=== PATIENT | male | born 1970 | race Two or more races ===

== ENCOUNTER 2020-09-14 02:42 | Inpatient (IN) | payer OTHER ==
[~2020-09-14] VITALS: Ht 162.6 cm; Wt 65.8 kg
[2020-09-14] MEDS ORDERED: ONDANSETRON HCL INJ 2MG/ML 2ML 2 MG/ML VIAL IV STA (03:08)
[2020-09-14] MEDS ORDERED: SODIUM CHLORIDE 0.9% 1000ML 1,000 ML IV STA (03:08)
[2020-09-14] MEDS ORDERED: FAMOTIDINE 20 MG/2 ML VIAL IV ONE (03:15)
[2020-09-14] MEDS ORDERED: ASPIRIN 325 MG TAB PO ONE (03:30)
[2020-09-14] MEDS: METOPROLOL TARTRATE 25 MG TAB PO SCH ×2 (03:30→18:00)
[2020-09-14] MEDS ORDERED: SODIUM CHLORIDE FLUSH 10 ML SYR INJ PRN (03:30)
[2020-09-14] MEDS ORDERED: DEXTROSE 50% SYRINGE 50 ML IV PRN (03:30)
--- NOTE | 2020-09-14 03:41 | NUR ---
[facility] notified of need for transfer to [facility] room 106
--- NOTE | 2020-09-14 03:48 | Emergency Department Note ---
History of Present Illnes History of Present Illness Chief Complaint: Abdominal Complaints History of Present Illness This is a 50 year old [place] Islander Rastafarian male Hx diabetes c/o nausea vomiting unable to eat for 1 day, no chest pain no SOB. He had SC 1 wk ago, went to [facility], had 2 stents, staying there for 5 days. Historian: Patient, Medical Record Arrival Mode: Car History limited by: language barrier Manager Administrative Services Required: Yes Onset (how long ago): day(s) (1 day) Radiation: Reports abdomen Severity: moderate Onset quality: gradual Duration (how long): day(s) Timing of current episode: constant Progression: worsening Context: Reports recent illness Relieving factors: none Exacerbating factors: none Associated symptoms: Reports malaise, Reports nausea/vomiting Treatments prior to arrival: none Past Medical/Family History Physician Review I have reviewed the patient's past medical and family history. Any updates have been documented here. Past Medical History Recent Fever: No Clinical Suspicion of Infectio: No New/Unexplained Change in Ment: No Past Medical History: Hypertension, Diabetes, SC, CAD Past Surgical History: PCI Social History Smoking Cessation: Unknown if ever smoked Alcohol Use: None Any Illegal Drug Use: No TB Exposure/Symptoms: No Physically hurt or threatened: No Family History Family history of heart diseas: No Other Any Pre-Existing Lines (PICC,: No Is patient up to date on immun: No Review of Systems Review of Systems Constitutional: Reports weakness EENTM: Reports no symptoms Cardiovascular: Reports no symptoms Respiratory: Reports no symptoms Gastrointestinal: Reports as per HPI, Reports nausea Genitourinary: Reports no symptoms Musculoskeletal: Reports other (cramp) Integumentary: Reports no symptoms Neurological: Reports no symptoms Psychological: Reports no symptoms Endocrine: Reports no symptoms Hematological/Lymphatic: Reports no symptoms Physical Exam Related Data Allergies: Coded Allergies: No Known Allergies (Unverified , 09/14/20) Vital signs reviewed: Yes Physical Exam CONSTITUTIONAL Constitutional: Present well-developed, Present well-nourished HENT HENT: Present normocephalic, Present atraumatic, Present oropharynx clear/moist, Present nose normal HENT L/R: Present left ext ear normal, Present right ext ear normal EYES Eyes: Reports PERRL, Reports conjunctivae normal NECK Neck: Present ROM normal PULMONARY Pulmonary: Present effort normal, Present breath sounds normal CARDIOVASCULAR Cardiovascular: Present regular rhythm, Present heart sounds normal, Present capillary refill normal, Present normal rate GASTROINTESTINAL Abdominal: Present soft, Present nontender, Present bowel sounds normal GENITOURINARY SKIN Skin: Present warm, Present dry MUSCULOSKELETAL Musculoskeletal: Present ROM normal NEUROLOGICAL Neurological: Present alert, Present oriented x 3, Present no gross motor or sensory deficits PSYCHOLOGICAL Psychological: Present mood/affect normal, Present judgement normal Results Laboratory Lab results reviewed: Yes Laboratory comments trop I 10, CKMB 4.5, repeat trop 1 hours later 7.09 Imaging Imaging results reviewed: Yes Impressions abdominal series: no acute Procedures 12 Lead ECG Interpretation ECG Interpretation : ECG: ECG 1 Manager Administrative Services: Interpreted by ED physician Date: Sep 14, 2020 Time: 03:00 Prior ECG tracings: reviewed Rhythm: sinus rhythm Rate: normal BPM: 103 QRS axis: normal ST segment elevation: V1, V2 Q waves: aVR, V1, V2 Clinical Impression: abnormal ECG Additional Comments evolving anterior SC. repeat EKG 1 hours later, no change Assessment & Plan Medical Decision Making MDM N/V due gastritis due to NSAID, angina equivalence, central pain Reassessment Reassessment time: 04:08 Reassessment improving, taking aspirin OK Assessment & Plan Final Impression: (1) Dehydration (2) Nausea & vomiting (3) Gastritis (4) Hyperglycemia due to diabetes mellitus (5) CAD (coronary artery disease), [place] coronary artery Depart Disposition: ADMITTED Home Meds Reported Medications Ticagrelor (BRILINTA) 90 Mg Tablet, BID 09/14/20 Sulfamethoxazole/Trimethoprim (BACTRIM DS TABLET) 1 Each Tablet, 1 TAB PO BID, #60 TAB 09/14/20 Spironolactone (SPIRONOLACTONE) 25 Mg Tablet, 12.5 MG PO DAILY, #60 TAB 09/14/20 Metoprolol Succinate (TOPROL XL) 25 Mg Tab.er.24h, 12.5 MG PO HS, TAB 09/14/20 Magnesium Oxide (MAGNESIUM OXIDE) 400 Mg Tablet, 400 MG PO BID, TAB 09/14/20 Atorvastatin Calcium (ATORVASTATIN CALCIUM) 20 Mg Tablet, 40 MG PO HS, #30 TAB 09/14/20 Aspirin (ASPIRIN) 81 Mg Tab.chew, DAILY 09/14/20 Metformin Hcl (METFORMIN HCL) 500 Mg Tablet, 500 MG PO BID, #60 TAB 09/14/20 Medications in the ED Famotidine 20 mg ONCE ONCE IV Last administered on 09/14/20at 03:32; Admin Dose 20 MG; Start 09/14/20 at 03:15; Stop 09/14/20 at 03:34; Status DC Ondansetron HCl 8 mg NOW STAT IV Last administered on 09/14/20at 03:30; Admin Dose 8 MG; Start 09/14/20 at 03:08; Stop 09/14/20 at 03:34; Status DC Sodium Chloride 1,000 ml @ 0 mls/hr Q0M STAT IV Last administered on 09/14/20at 03:32; Admin Dose 999 MLS/HR; Start 09/14/20 at 03:08; Stop 09/14/20 at 03:17; Status DC Aspirin 81 mg QAM PO ; Start 09/14/20 at 09:00; Stop 10/14/20 at 08:59; Status UNV Metoprolol Tartrate 25 mg Q12H PO ; Start 09/14/20 at 03:30; Stop 10/14/20 at 03:29; Status UNV Simvastatin 40 mg HS PO ; Start 09/14/20 at 21:00; Stop 10/14/20 at 20:59; Status UNV Nitroglycerin 1 gm Q6H TOP ; Start 09/14/20 at 06:00; Stop 10/14/20 at 05:59; Status UNV Famotidine 20 mg Q12H IV ; Start 09/14/20 at 03:30; Stop 10/14/20 at 03:29; Status UNV Sodium Chloride 1,000 ml @ 125 mls/hr Q8H IV ; Start 09/14/20 at 03:30; Stop 10/14/20 at 03:29 Sodium Chloride 10 ml PRN PRN INJ IV SITE FLUSH; Start 09/14/20 at 03:30; Stop 10/14/20 at 03:29 Insulin Human Regular ACHS SQ ; Start 09/14/20 at 07:30; Stop 10/14/20 at 07:29 Dextrose 50 ml PRN PRN IV BLOOD SUGAR; Start 09/14/20 at 03:30; Stop 10/14/20 at 03:29 Ondansetron HCl 4 mg Q6H IV ; Start 09/14/20 at 06:00; Stop 10/14/20 at 05:59; Status UNV Aspirin 325 mg ONCE ONCE PO ; Start 09/14/20 at 03:30; Stop 09/14/20 at 03:37; Status DC Physician Attestation Provider Attestation case discussed with Dr Parth Chaney, JOSIE Barakat MD Sep 14, 2020 03:48
[2020-09-14] MEDS ORDERED: PROMETHAZINE 25MG/ NS 50ML (IV) IV PRN (04:00)
[2020-09-14] MEDS: ASPIRIN 81 MG CHEW TAB PO SCH (04:15)
--- NOTE | 2020-09-14 04:15 | NUR ---
repeat EKG and TROP done per MD request.
--- NOTE | 2020-09-14 04:46 | NUR ---
pt had covid test done here yesterday results still pending
--- NOTE | 2020-09-14 04:55 | Diagnostic Imaging Report ---
EXAM: Abdomen 3 radiographs INDICATION: ^abdominal pain n/v ^[id number] ^[id number] COMPARISON: None FINDINGS: Nonobstructive bowel gas pattern. No signs of pneumoperitoneum. Moderate rectal stool burden. Mild right lung base opacity. No acute osseous abnormality. IMPRESSION: 1. Nonobstructive bowel gas pattern. 2. Mild right lung base opacity, representing subsegmental atelectasis or trace pleural effusion. Signed by: Dr. Colt Lee MD on 09/14/2020 4:52 AM
--- NOTE | 2020-09-14 05:00 | NUR ---
PATIENT ARRIVED VIA STRETCHER FROM [facility]. RECEIVED REPORT FROM SEAN KEARNS NURSE. CALL LIGHT WITHIN REACH. PATIENT SPEAKS A LITTLE BIT OF CONGOLESE. 2 GUARDS AT BEDSIDE. PATIENT AMBULATES.
[2020-09-14] MEDS: SODIUM CHLORIDE 0.9% 1000ML 1,000 ML IV SCH ×3 (05:18→22:15)
[2020-09-14 05:25] VITALS: BP 88/70
[2020-09-14] MEDS ORDERED: TICAGRELOR 90 MG TABLET PO SCH ×2 (06:00→10:15)
[2020-09-14] MEDS ORDERED: NITROGLYCERIN 2% OINT 1 GM PKT TOP SCH (06:00)
[2020-09-14] MEDS ORDERED: ATORVASTATIN CA20 MG PO (06:09)
[2020-09-14] MEDS ORDERED: MAGNESIUM OXID400 MG PO (06:09)
[2020-09-14] MEDS ORDERED: BRILINTA90 MG (06:09)
[2020-09-14] MEDS ORDERED: TOPROL XL25 MG PO (06:09)
[2020-09-14] MEDS ORDERED: ASPIRIN81 MG (06:09)
[2020-09-14] MEDS ORDERED: SPIRONOLACTONE25 MG PO (06:09)
[2020-09-14] MEDS ORDERED: METFORMIN HCL500 MG PO (06:09)
[2020-09-14] MEDS ORDERED: BACTRIM DS TAB1 EACH PO (06:09)
--- NOTE | 2020-09-14 06:26 | NUR ---
H&P cc: nausea/vomiting HPI: 50yoM, a account relationship manager, with recent left chest pain, taken to [facility], found to have FL, underwent LHC with 2 stents 1 week ago, now with intractable N/V upon eating. Tn 10. Repeat now is 7. PMH: FL s/p 2 stents at [facility] 1 week ago in 09/2020, HTN, HLD, DM2 PSHx: coronary stent ALlergies; see emr FH/SH: from [place]; some etoh; no cigs; . Meds; see MAR ROS: no f/c/s/CHERY/cp/sob/dizziness/leg pain/back pain/vision changes/confusion/focal limb weakness v/s revd PE nad anicteric ns1s2 mod bs soft nt nd no e/t skin dry n. affect a&ox3; power labs/meds revd A/P: NSTEMI- medical tx; echo; cardio consult. CAD- recent stent; cont BB/ASA/brilanta DM2 - check hab1c/lipids HLD- statin Prop; scd; ppi dispo: f/u labs; f/u cardio CARYL EVANS MD, PHD.
[2020-09-14] MEDS ORDERED: ENOXAPARIN INJ 80 MG/0.8 ML SYR SC SCH (07:15)
--- NOTE | 2020-09-14 07:26 | NUR ---
GAVE BEDSIDE SHIFT REPORT TO ONCOMING NURSE. CALL LIGHT WITHIN REACH. PATIENT IN BED. HOURLY ROUNDING PERFORMED.
[2020-09-14 07:55] LABS: BASOPHILS % 0.5 % (0.0-1.0); EOSINOPHILS # (AUTO) 0.1 (0.0-0.4); EOSINOPHILS % 0.8 % (0.0-6.0); HEMATOCRIT 34.2 % (38.2-49.6); HEMOGLOBIN 11.1 g/dL (14.0-18.0); LYMPHOCYTES # (AUTO) 1.1 (1.0-3.2); MEAN CORPUSCULAR HEMOGLOBIN 26.9 pg (28-32); MEAN CORPUSCULAR HGB CONC 32.5 g/dL (31-35); MEAN CORPUSCULAR VOLUME 82.8 fL (81-99); MONOCYTES # (AUTO) 0.8 (0.2-0.8); MONOCYTES % 9.2 % (4.4-11.3); NEUTROPHILS # (AUTO) 6.4 (2.1-6.9); NEUTROPHILS % 75.9 % (38.7-80.0); PLATELET COUNT 360 x10e3/uL (140-360); RED BLOOD COUNT 4.13 x10e6/uL (4.3-5.7); RED CELL DISTRIBUTION WIDTH 12.4 % (11.7-14.4)
[2020-09-14 08:19] LABS: ANION GAP 12.4 mmol/L (8-16); BLOOD UREA NITROGEN 14 mg/dL (7-26); BUN/CREATININE RATIO 15 (6-25); CALCIUM 8.8 mg/dL (8.4-10.2); CARBON DIOXIDE 25 mmol/L (22-29); CHLORIDE 100 mmol/L (98-107); CREATININE, SERUM 0.93 mg/dL (0.72-1.25); EST GLOMERULAR FILTRATION RATE > 60 ML/MIN (60-); GLUCOSE 266 mg/dL (74-118); POTASSIUM 5.4 mmol/L (3.5-5.1); SODIUM 132 mmol/L (136-145)
[2020-09-14] MEDS: INSULIN REGULAR, HUMAN 100 UNIT/1 ML 3ML VIAL SQ SCH ×4 (08:30→21:00)
--- NOTE | 2020-09-14 08:30 | NUR ---
Notified Sheba tracy NP for Dr. Alyse Valdovinos, of critical troponin 10.9 no new orders received.
[2020-09-14 08:41] LABS: CREATINE KINASE MB 2.2 ng/mL (0-5.0)
[2020-09-14 08:55] VITALS: BP 88/71
[2020-09-14 09:00] LABS: CHOL/HDL RATIO 4.4 (3.9-4.7)
--- NOTE | 2020-09-14 10:00 | NUR ---
Notified Dr.K. Valdovinos of patient's potassium level 5.4 received orders to recheck tomorrow BMP in am.
[2020-09-14] MEDS ORDERED: ASPIRIN 81 MG CHEW TAB PO ONE (10:30)
--- NOTE | 2020-09-14 11:00 | Consultation ---
DATE OF CONSULTATION: Cardiology Consultation REQUESTING PHYSICIAN: Dr. Saucedo. REASON FOR CONSULTATION: Recent heart attack. 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 He reports that he came into the ER because he had a COVID test done to be able to go back to working on the shift for he is here from [place] and after having this COVID test done, he ended up having two episodes of vomiting and for that reason, he came in to seek care. At this present time, he denies any chest pain, shortness of breath, palpitations, dizziness, syncope, abdominal pain, nausea, or vomiting. He reports he feels well. PHYSICAL EXAMINATION: VITAL SIGNS: Temperature 98.3, pulse 90, respiratory rate 16, blood pressure 88/71, and oxygen saturation 100% on room air. GENERAL: Alert and oriented x3. Resting comfortably in bed, in no acute distress. NECK: Supple. No JVD noted. CARDIOVASCULAR: Regular rate and rhythm. No murmurs. No gallops. LUNGS: Clear to auscultation throughout. No wheezing. No rhonchi or crackles. ABDOMEN: Soft and nontender. EXTREMITIES: Lower extremity, no edema. 2+ pedal pulses. CARDIOVASCULAR MEDICATIONS: Aspirin 81 mg p.o. daily, atorvastatin 20 mg p.o. at bedtime, and Brilinta 90 mg p.o. daily. LABORATORY DATA: WBC 8.38, hemoglobin 11.1, hematocrit 34.2, and platelets 360. Sodium 132, potassium 5.4, BUN 14, creatinine 0.93, and calcium 10.4. Troponin 10.957, CK-MB 2.20, and creatine kinase 181. LDL 82, HDL 31, and total cholesterol 137. Abdominal x-ray with nonobstructive bowel gas pattern and mild right lung base opacity. IMPRESSION: 1. Coronary artery disease, status post recent myocardial infarction with PCI x2. 2. Elevated troponin, likely secondary to recent PCI. 3. Diabetes mellitus. 4. Vomiting. RECOMMENDATIONS: Continue the above medication. Primary team to evaluate and address vomiting. Clinically stable from a Cardiology standpoint. No further testing indicated at this time. We will continue to follow this patient very closely and maintain on telemetry while in-house. Dictated by Sheba Keller, IRON MELTER MD SASHA Hilton/TAMI /[id number]
[2020-09-14] MEDS: ONDANSETRON HCL INJ 2MG/ML 2ML 2 MG/ML VIAL IV SCH ×3 (11:50→21:24)
--- NOTE | 2020-09-14 12:00 | NUR ---
handoff report to nurse Polina QUAN
[2020-09-14 12:36] VITALS: BP 89/66
[2020-09-14 14:15] LABS: BASOPHILS # (AUTO) 0.1 (0.0-0.1); BASOPHILS % 0.9 % (0.0-1.0); EOSINOPHILS # (AUTO) 0.2 (0.0-0.4); EOSINOPHILS % 2.5 % (0.0-6.0); HEMATOCRIT 34.8 % (38.2-49.6); HEMOGLOBIN 11.3 g/dL (14.0-18.0); LYMPHOCYTES # (AUTO) 1.5 (1.0-3.2); LYMPHOCYTES % 19.5 % (18.0-39.1); MEAN CORPUSCULAR HGB CONC 32.5 g/dL (31-35); MEAN CORPUSCULAR VOLUME 83.3 fL (81-99); MONOCYTES # (AUTO) 0.8 (0.2-0.8); MONOCYTES % 10.6 % (4.4-11.3); NEUTROPHILS # (AUTO) 5.1 (2.1-6.9); NEUTROPHILS % 66.1 % (38.7-80.0); PLATELET COUNT 368 x10e3/uL (140-360); RED BLOOD COUNT 4.18 x10e6/uL (4.3-5.7); RED CELL DISTRIBUTION WIDTH 12.5 % (11.7-14.4)
[2020-09-14 14:39] LABS: ANION GAP 12.5 mmol/L (8-16); BLOOD UREA NITROGEN 12 mg/dL (7-26); BUN/CREATININE RATIO 14 (6-25); CALCIUM 8.9 mg/dL (8.4-10.2); CARBON DIOXIDE 25 mmol/L (22-29); CHLORIDE 103 mmol/L (98-107); CREATININE, SERUM 0.83 mg/dL (0.72-1.25); EST GLOMERULAR FILTRATION RATE > 60 ML/MIN (60-); GLUCOSE 113 mg/dL (74-118); POTASSIUM 4.5 mmol/L (3.5-5.1); SODIUM 136 mmol/L (136-145)
[2020-09-14 15:59] VITALS: BP 78/52
[2020-09-14 16:28] LABS: CREATINE KINASE MB 2.5 ng/mL (0-5.0)
[2020-09-14] MEDS: FAMOTIDINE 20 MG/2 ML VIAL IV SCH (17:30)
[2020-09-14] MEDS: TICAGRELOR 90 MG TABLET PO SCH (17:46)
--- NOTE | 2020-09-14 19:09 | NUR ---
report given to on coming nurse, walking rounds complete.
--- NOTE | 2020-09-14 19:20 | NUR ---
Patient received lying in bed, AAO x 3. Security at bedside. Patient had no complaints of pain. Respirations even and non-labored. Safety measures in place. Patient /Security personnel instructed to call for assistance when needed. Call light within reach.
[2020-09-14 20:00] VITALS: BP 88/62
[2020-09-14 21:00] VITALS: BP 88/62
[2020-09-14] MEDS ORDERED: SIMVASTATIN 20 MG TAB PO SCH (21:00)
[2020-09-14 21:03] LABS: BASOPHILS % 0.6 % (0.0-1.0); EOSINOPHILS # (AUTO) 0.2 (0.0-0.4); EOSINOPHILS % 2.9 % (0.0-6.0); HEMATOCRIT 34.5 % (38.2-49.6); HEMOGLOBIN 11.1 g/dL (14.0-18.0); LYMPHOCYTES # (AUTO) 1.8 (1.0-3.2); LYMPHOCYTES % 24.2 % (18.0-39.1); MEAN CORPUSCULAR HGB CONC 32.2 g/dL (31-35); MEAN CORPUSCULAR VOLUME 83.9 fL (81-99); MONOCYTES # (AUTO) 0.7 (0.2-0.8); NEUTROPHILS # (AUTO) 4.6 (2.1-6.9); NEUTROPHILS % 62.7 % (38.7-80.0); PLATELET COUNT 371 x10e3/uL (140-360); RED BLOOD COUNT 4.11 x10e6/uL (4.3-5.7); RED CELL DISTRIBUTION WIDTH 12.5 % (11.7-14.4)
[2020-09-14] MEDS: ATORVASTATIN 20 MG TAB PO SCH (21:24)
[2020-09-14 21:26] LABS: ANION GAP 13.5 mmol/L (8-16); BLOOD UREA NITROGEN 12 mg/dL (7-26); BUN/CREATININE RATIO 14 (6-25); CALCIUM 8.7 mg/dL (8.4-10.2); CARBON DIOXIDE 25 mmol/L (22-29); CHLORIDE 103 mmol/L (98-107); CREATININE, SERUM 0.88 mg/dL (0.72-1.25); EST GLOMERULAR FILTRATION RATE > 60 ML/MIN (60-); GLUCOSE 149 mg/dL (74-118); POTASSIUM 4.5 mmol/L (3.5-5.1); SODIUM 137 mmol/L (136-145)
[2020-09-14 22:18] LABS: CREATINE KINASE MB 2.1 ng/mL (0-5.0)
[2020-09-15] VITALS (10 sets, daily range): BP systolic 77–100; BP diastolic 52–70
--- NOTE | 2020-09-15 00:13 | NUR ---
Patient's BP is 85/52 with a HR of 87. Current troponin level is 13.895. Dr. Lindsey emanuel. Awaiting call back.
--- NOTE | 2020-09-15 00:22 | NUR ---
Dr. Portillo returned call. No new order received.
--- NOTE | 2020-09-15 03:32 | NUR ---
IM- progress note O/N see below ROS: no f/c/s/CHERY/cp/sob/dizziness/leg pain/back pain/vision changes/confusion/focal limb weakness v/s revd PE nad anicteric ns1s2 mod bs soft nt nd no e/t skin dry n. affect a&ox3; power labs/meds revd A/P: NSTEMI- medical tx; echo; cardio consult. CAD- recent stent; cont BB/ASA/brilanta DM2 - check hab1c/lipids HLD- statin Prop; scd; ppi dispo: f/u labs; f/u cardio 11-9 Hypotensive- reduce BB; Tn peak 14, now improving; Acute SYstolic CHF- LVEF was 30-35% 1 week ago during STEMI. Pt has ONUR to LAD and LCX. Needs staged procedure for RCA disease. Plans for d/c to [facility] tomorrow with visit to cardiology within 1 days of arrival. CARYL EVANS MD, PHD.
[2020-09-15] MEDS: ONDANSETRON HCL INJ 2MG/ML 2ML 2 MG/ML VIAL IV SCH ×4 (04:30→21:23)
[2020-09-15] MEDS: SODIUM CHLORIDE 0.9% 1000ML 1,000 ML IV SCH ×2 (05:02→13:18)
[2020-09-15 05:51] LABS: ANION GAP 13.1 mmol/L (8-16); BLOOD UREA NITROGEN 12 mg/dL (7-26); BUN/CREATININE RATIO 14 (6-25); CALCIUM 8.3 mg/dL (8.4-10.2); CARBON DIOXIDE 24 mmol/L (22-29); CHLORIDE 105 mmol/L (98-107); CREATININE, SERUM 0.84 mg/dL (0.72-1.25); EST GLOMERULAR FILTRATION RATE > 60 ML/MIN (60-); GLUCOSE 138 mg/dL (74-118); POTASSIUM 4.1 mmol/L (3.5-5.1); SODIUM 138 mmol/L (136-145)
[2020-09-15] MEDS: FAMOTIDINE 20 MG/2 ML VIAL IV SCH ×2 (05:54→17:01)
[2020-09-15] MEDS: TICAGRELOR 90 MG TABLET PO SCH ×2 (05:54→18:00)
[2020-09-15] MEDS: METOPROLOL TARTRATE 25 MG TAB PO SCH ×2 (05:55→18:00)
--- NOTE | 2020-09-15 06:15 | NUR ---
here to see patient. aware of low BP (80/58) and stated to continue to monitor patient.
--- NOTE | 2020-09-15 06:42 | NUR ---
Patient resting comfortably. Walking rounds done. Shift report given to oncoming nurse regarding patient's status.
[2020-09-15] MEDS: ASPIRIN 81 MG CHEW TAB PO SCH (09:22)
[2020-09-15] MEDS: INSULIN REGULAR, HUMAN 100 UNIT/1 ML 3ML VIAL SQ SCH ×4 (09:23→20:35)
--- NOTE | 2020-09-15 19:12 | Progress Note ---
DATE: Cardiology Progress Note SUBJECTIVE: No chest pain or shortness of breath. OBJECTIVE: VITAL SIGNS: Temperature is 98.2, heart rate is 98, respirations are 19, blood pressure is 95/70, and oxygen saturation 100% on room air. GENERAL: Well-appearing, in no apparent distress. CARDIOVASCULAR: Regular rate and rhythm. LUNGS: Clear to auscultation. ABDOMEN: Soft, nontender, and nondistended. EXTREMITIES: No clubbing. No cyanosis or edema. LABORATORY DATA: Reviewed. Hemoglobin 11.1. Creatinine 0.8. Outside records reviewed. IMPRESSION: 1. Recent myocardial infarction, status post percutaneous coronary intervention of the left anterior descending and left circumflex coronary arteries. 2. Elevated troponin due to recent myocardial infarction. 3. Diabetes mellitus. 4. Chronic systolic congestive heart failure. 5. Vomiting. RECOMMENDATIONS: Continue dual antiplatelet therapy and statin. The patient is not able to tolerate optimal heart failure medications due to hypotension. No further cardiovascular workup is required at this point in time. The patient may proceed with travel and discussed the need to follow up with Cardiology in his home country. DO MARCELO Christianson/MODL /[id number]
--- NOTE | 2020-09-15 19:20 | NUR ---
Received the patient in report.lyeing in the bed.aaox3.assessment done.no resp.distress noted.bed alarm on.phone and call light within reach.instructed to call for assistance as needed.stable condition.
[2020-09-15] MEDS: ATORVASTATIN 20 MG TAB PO SCH (21:14)
[2020-09-16] VITALS: BP 83/60
[2020-09-16] MEDS: SODIUM CHLORIDE 0.9% 1000ML 1,000 ML IV SCH ×2 (00:29→03:30)
--- NOTE | 2020-09-16 01:00 | NUR ---
Tolerates diet.no c/o vomiting.
[2020-09-16 04:00] VITALS: BP 83/68
[2020-09-16] MEDS: ONDANSETRON HCL INJ 2MG/ML 2ML 2 MG/ML VIAL IV SCH (04:05)
[2020-09-16] MEDS: METOPROLOL TARTRATE 25 MG TAB PO SCH (05:22)
[2020-09-16] MEDS: TICAGRELOR 90 MG TABLET PO SCH (06:14)
[2020-09-16] MEDS: FAMOTIDINE 20 MG/2 ML VIAL IV SCH (06:14)
[2020-09-16] MEDS ORDERED: LOPRESSOR25 MG PO (06:46)
--- NOTE | 2020-09-16 06:48 | NUR ---
D/C summary Principal Dx: NSTEMI- medical tx; echo; cardio consult. CAD- recent stent; cont BB/ASA/brilanta Hypotension due to recent NSTEMI/STEMI Acute Sysotlic CHF LVEF 30-35% Secondary Dx: DM2 - check hab1c/lipids HLD- statin Prop; scd; ppi dispo: f/u labs; f/u cardio 11-9 Hypotensive- reduce BB; Tn peak 14, now improving; Acute SYstolic CHF- LVEF was 30-35% 1 week ago during STEMI. Pt has ONUR to LAD and LCX. Needs staged procedure for RCA disease. Plans for d/c to [facility] tomorrow with visit to cardiology within 1 days of arrival. d/c home stable f/u pcp 2 days and cardiology 2 days d/c>35mins Do not take metoprolol if SBP <100; Unable to give nimco-I due to hypotension. CARYL EVANS MD, PHD.
--- NOTE | 2020-09-16 07:25 | NUR ---
REPORT GIVEN TO ONCOMING RN.STABLE CONDITION.
[2020-09-16 07:40] VITALS: BP 95/68
[2020-09-16] MEDS: INSULIN REGULAR, HUMAN 100 UNIT/1 ML 3ML VIAL SQ SCH (08:00)
--- NOTE | 2020-09-16 09:06 | NUR ---
Discharge instructions and prescriptions were discussed with the patient via plumber cub line. Patient verbalized understanding. IV to the left arm was removed with tip intact. Tele removed for dc.
[2020-09-16 09:08] VITALS: BP 95/68
[2020-09-16] MEDS: ASPIRIN 81 MG CHEW TAB PO SCH (09:50)
== END 2020-09-16 10:00 | disposition home or self-care (01) | DRG 280 ==
LOC: FSED 03:17 → EDSEX 03:26 → ERHOLD 03:26 → MED/SURG 05:02 → MED/SURG2 12:28 → OBSVTOIN 09-15 03:33
PROVIDERS: ADMIT Internal Medicine; ATTEND Internal Medicine
DX: I21.3 ST elevation (STEMI) myocardial infarction of unspecified site (principal); I50.21 Acute systolic (congestive) heart failure; I50.23 Acute on chronic systolic (congestive) heart failure; I25.10 Atherosclerotic heart disease of native coronary artery without angina pectoris; Z95.5 Presence of coronary angioplasty implant and graft; E78.5 Hyperlipidemia, unspecified; I95.9 Hypotension, unspecified; I11.0 Hypertensive heart disease with heart failure; E11.9 Type 2 diabetes mellitus without complications; Z11.59 Encounter for screening for other viral diseases; E11.65 Type 2 diabetes mellitus with hyperglycemia; E86.0 Dehydration; K29.70 Gastritis, unspecified, without bleeding
CPT/HCPCS: 36415; 74021; 80048; 80053; 80061; 82550; 82553; 82948; 83036; 83735; 84484; 85025; 93005; 96374; 96375; 96376; 99284; G0378; J2405; J7030